=== PATIENT | male | born 1960 | race Caucasian/White ===

== ENCOUNTER 2018-07-19 12:44 | Emergency (ER) | payer SELFPAY ==
[~2018-07-19] VITALS: Ht 175.3 cm; Wt 83.9 kg
[2018-07-19 12:49] VITALS: BP 177/116
--- NOTE | 2018-07-19 12:58 | NUR ---
PATIENT IS A 57 YO MALE BIB [facility] FOR PRE BOOK EXAM. C/O HIGH BLOOD PRESSURE. [id number] ON ARRIVAL TO CHAIR E DR MARTINEZ HAS SEEN PATIENT.
[2018-07-19] MEDS ORDERED: cloNIDine 0.1 MG TAB PO ONE (13:05)
[2018-07-19] MEDS ORDERED: ALPRAZolam 0.5 MG TAB PO ONE (13:05)
--- NOTE | 2018-07-19 13:33 | NUR ---
PATIENT MOVED TO BED 10
[2018-07-19] MEDS ORDERED: FUROSEMIDE 40 MG TAB PO ONE (14:05)
[2018-07-19] MEDS ORDERED: LISINOPRIL 20 MG TAB PO ONE (14:25)
[2018-07-19] MEDS ORDERED: LISINOPRIL 10 MG TAB ONE (14:33)
[2018-07-19 15:38] VITALS: BP 159/98
--- NOTE | 2018-07-19 15:38 | NUR ---
Patient discharged with v/s stable. Written and verbal after care instructions given and explained. Patient alert, oriented and verbalized understanding of instructions. Ambulatory with steady gait. All questions addressed prior to discharge. ID band removed. Patient advised to follow up with PMD. Rx of CLONIDINE given. Patient educated on indication of medication including possible reaction and side effects. Opportunity to ask questions provided and answered.
[2018-07-20] MEDS ORDERED: LISINOPRIL 20 MG TAB PO ONE (09:00)
== END 2018-07-19 15:38 | disposition home or self-care (01) ==
LOC: MED 12:44
DX: Z02.89 Encounter for other administrative examinations (principal); I10 Essential (primary) hypertension
CPT/HCPCS: 99284